=== PATIENT | female | born 1985 | race Caucasian/White ===

== ENCOUNTER → 2019-09-24 | Outpatient (CLI) | payer OTHER | LOC: LAB.O 14:42 | PROVIDERS: ATTEND Nurse Practitioner Family | DX: N30.00 Acute cystitis without hematuria (principal) ==

== ENCOUNTER → 2020-05-03 | Outpatient (CLI) | payer MEDICARE, OTHER | LOC: LAB.O 11:41 | PROVIDERS: ATTEND Registered Nurse General Practice | DX: R19.7 Diarrhea, unspecified (principal) ==